=== PATIENT | male | born 1980 | race Caucasian/White ===

== ENCOUNTER 2019-05-12 02:17 | Emergency (ER) | payer SELFPAY ==
[~2019-05-12] VITALS: Ht 165.1 cm; Wt 77.1 kg
[2019-05-12 02:20] VITALS: BP_SYST 108
--- NOTE | 2019-05-12 02:20 | NUR ---
[facility] to [facility] to gown for evaluation. Side rails up.
--- NOTE | 2019-05-12 02:25 | NUR ---
ER at bedside examining patient.
[2019-05-12 02:35] VITALS: BP_SYST 110
--- NOTE | 2019-05-12 02:35 | NUR ---
Patient given verbal discharge instructions BY DR GAONA and verbalizes understanding. ER MD discussed with patient the results and treatment provided. Patient in stable condition. ID arm band removed. NO Rx of given. Patient educated on pain management and to follow up with PMD. Pain Scale 0/10. Opportunity for questions provided and answered. Medication side effect fact sheet provided.
== END 2019-05-12 02:36 ==
LOC: SED 02:17
DX: Z02.89 Encounter for other administrative examinations (principal)
CPT/HCPCS: 99283